=== PATIENT | female | born 1950 | race Caucasian/White ===

== ENCOUNTER → 2017-06-02 | Outpatient (CLI) | payer MEDICARE, OTHER ==
--- NOTE | ~2017-06-02 | US128 ---
[id number] [facility] [address]. [place], [place] [address] [id number] O MR#: [id number] Acc #: [id number] NAME: SLIM DOMINGUEZ : 1950 SEX: F STUDY DATE/TIME: 06/02/2017 8:52 UNIT: [facility] ROOM: STUDY DESCRIPTION: US Thyroid Attending Physician: Luis Durham M.D. Ordering Physician: Luis Durham M.D. Primary Care Physician: Jaylene Capone M.D. MEDICAL IMAGING REPORT This report is preliminary unless electronic signature is present EXAM Thyroid ultrasound. INDICATIONS Thyrotoxicosis. COMPARISON STUDY 05/02/2016. FINDINGS Ultrasound of the thyroid gland shows the right lobe is 4.6 x 1.8 x 1.1 cm. There are at least 3 nodules visible in the right thyroid lobe. There is an upper lobe nodule measuring 9 x 8 x 5 mm. This is partially cystic. There is a posterior hypoechoic well-circumscribed mass measuring 14 x 12 x 8 mm. This is unchanged the prior study. There is a hypoechoic 5 mm lesion in the mid right thyroid lobe. The left thyroid lobe is 1.5 x 3.5 x 2 cm and it contains a single nodule measuring about 11 x 13 x 8 mm. This was not identified on the prior study, but it is fairly subtle and may have been overlooked. It is relatively isoechoic. The isthmus is normal. IMPRESSION 1. There are least 3 nodules on the right side and dominant nodule is about 14 mm in maximum dimension, hypoechoic, and well-circumscribed; unchanged 05/02/2016. The other 2 nodules are smaller and at least 1 of them was visualized previously without change. 2. The left thyroid lobe there is a 13 mm well circumscribed benign appearing nodule identified. There are no images of it from the previous study, but it is very subtle and may have been overlooked on the previous study. Continued followup is recommended. Otherwise study is normal. Dictated by... Luis Carcamo M.D. THIS IS AN ELECTRONICALLY VERIFIED REPORT Luis Carcamo M.D. at 06/06/2017 4:38 PM YARY/cole TD: 06/06/2017 14:15 JOB #: [id number] MEDICAL IMAGING REPORT Page 1 of 1 COPY
== END | disposition home or self-care (01) ==
LOC: CWCC 08:36
DX: E03.9 Hypothyroidism, unspecified (principal); E04.1 Nontoxic single thyroid nodule
CPT/HCPCS: 76536

== ENCOUNTER → 2017-06-06 | Outpatient (CLI) | payer MEDICARE, OTHER ==
--- NOTE | ~2017-06-06 | MY11 ---
[facility] A Service of [facility] & [facility] RADIOLOGY TEXT RESULTS PATIENT: SLIM DOMINGUEZ LOCATION: [facility] : 46 UNIT #: [id number] AGE: [address]: Jaylene Capone MD SEX: F ORDER DR: [id number] [address] [address] [id number] O MR#: [id number] Acc #: [id number] NAME: SLIM DOMINGUEZ : 1950 SEX: F STUDY DATE/TIME: 06/06/2017 8:54 UNIT: [facility] ROOM: STUDY DESCRIPTION: MY Mammogram Screening Dig Denny Attending Physician: Jaylene Capone M.D. Referring Physician: Jaylene Capone M.D. Ordering Physician: Jaylene Capone M.D. Primary Care Physician: Jaylene Capone M.D. MEDICAL IMAGING REPORT This report is preliminary unless electronic signature is present. EXAM Digital screening mammogram 06/06/2017 [facility]. HISTORY 67-year-old woman. Positive family history, mother age 86, maternal aunt in her 50s. Known left nipple inversion with pain, comes and goes, left breast around left nipple. COMPARISON MAMMOGRAM 03/01/2012, 03/06/2013, 12/03/2014, 05/16/2016. FINDINGS Digital imaging of each breast was completed utilizing screening protocol. Review includes FDA-approved CAD device. Breast parenchyma is partially fatty replaced. Mild subareolar duct prominence is noted on the left with left nipple inversion. Small circumscribed stable nodule left subareolar location. I see no suspicious mass characteristics. There are no interval occurring microcalcifications and no suspicious architectural deformity. IMPRESSION Stable benign mammogram. Annual screening recommended. Patients over the age of 40 are entered into a reminder system with target due date for the next mammogram. BIRADS: 2 Benign finding. Dictated by... Basilio Porras M.D. THIS IS AN ELECTRONICALLY VERIFIED REPORT Basilio Porras M.D. at 06/06/2017 2:36 PM [address] [facility] A Service of [facility] & [facility] RADIOLOGY TEXT RESULTS PATIENT: SLIM DOMINGUEZ LOCATION: [facility] : 46 UNIT #: [id number] AGE: [address]: Jaylene Capone MD SEX: F ORDER DR: Chuy TD: 06/06/2017 14:25 JOB #: [id number] MEDICAL IMAGING REPORT Page 1 of 1
== END | disposition home or self-care (01) ==
LOC: SMAM 07:54
DX: Z12.31 Encounter for screening mammogram for malignant neoplasm of breast (principal); Z80.3 Family history of malignant neoplasm of breast; Z98.890 Other specified postprocedural states
CPT/HCPCS: G0202

== ENCOUNTER → 2017-07-27 | Outpatient (CLI) | payer MEDICARE, OTHER ==
--- NOTE | ~2017-07-27 | MR18 ---
[facility] A Service of [facility] & [facility] RADIOLOGY TEXT RESULTS PATIENT: SLIM DOMINGUEZ LOCATION: [facility] : 46 UNIT #: [id number] AGE: [address]: Jaylene Capone MD SEX: F ORDER DR: [id number] [address] [address] [id number] O MR#: [id number] Acc #: [id number] NAME: SLIM DOMINGUEZ : 1950 SEX: F STUDY DATE/TIME: 07/27/2017 11:47 UNIT: [facility] ROOM: STUDY DESCRIPTION: MR Brain Wo Contrast Attending Physician: Jaylene Capone M.D. Referring Physician: Jaylene Capone M.D. Ordering Physician: Jaylene Capone M.D. Primary Care Physician: Jaylene Capone M.D. MRI CENTER REPORT This report is preliminary unless electronic signature is present. EXAM MRI of the brain without contrast dated 07/27/2017. COMPARISON None. HISTORY Dizziness for 2 1/2 months. FINDINGS Multisequence multiplanar imaging of the brain was obtained without contrast. There is a focal 8 x 5 mm oval increased T2 signal with hypointense gradient signal. 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 It is located medial to the posterior horn of the right lateral ventricle. Postcontrast sequences are not available to evaluate for possible associated enhancement. No prominent vascular flow void is noted to extend towards it on the current noncontrasted study. S-shaped nasal septal deviation is seen. Paranasal sinuses, orbits with the ocular structures are unremarkable. Minimal bilateral mastoid mucosal thickening is seen. Thick slices through the sella with the pituitary gland, pineal region are unremarkable. Mild degenerative changes are noted in the cervical spine. IMPRESSION 1. Scattered few hyperintense T2-signal lesions are noted in the white matter, likely related to mild chronic microvascular ischemic change or migraine based on age and statistics. 2. There is an oval 8 x 5 mm area of increased T2 signal with some hemosiderin deposition immediately along the lateral aspect of the superior portion of the tentorium cerebelli. It is noted in the brain parenchyma medial to the atrium of the right lateral ventricle. It could represent an old hemorrhagic insult. Lesions like cavernous STS. [facility] A Service of [facility] & [facility] RADIOLOGY TEXT RESULTS PATIENT: SLIM DOMINGUEZ LOCATION: [facility] : 46 UNIT #: [id number] AGE: [address]: Jaylene Capone MD SEX: F ORDER DR: hemangioma can be considered in the differential diagnosis along with a focus of old trauma or old hemorrhagic infarct. No obvious associated large vascular flow voids are noted to suggest feeding or draining vessels. Postcontrast imaging is not available to further evaluate for enhancing components. Given the lack of edema, it is more likely an old insult to the rather than an acute lesion. 3. Minimal hyperintense T2 nonspecific tiny lesions are scattered in the white matter, likely related to mild chronic microvascular ischemic change or migraine based on age and statistics. Dictated by... Naseem Mckeon M.D. THIS IS AN ELECTRONICALLY VERIFIED REPORT Naseem Mckeon M.D. at 08/01/2017 2:44 PM CPR/pc TD: 07/28/2017 07:41 JOB #: [id number] MRI CENTER REPORT Page 1 of 1
== END | disposition home or self-care (01) ==
LOC: SMRI 11:15
DX: R42 Dizziness and giddiness (principal); R90.82 White matter disease, unspecified
CPT/HCPCS: 70551